=== PATIENT | female | born 1980 | race Caucasian/White ===

== ENCOUNTER 2016-09-06 10:14 | Emergency (ER) | payer OTHER ==
[~2016-09-06] VITALS: Ht 172.7 cm; Wt 89.0 kg
[2016-09-06 12:56] VITALS: BP 103/55
== END 2016-09-06 12:58 | disposition home or self-care (01) ==
LOC: ED 11:00
DX: N92.0 Excessive and frequent menstruation with regular cycle (principal); N93.8 Other specified abnormal uterine and vaginal bleeding; N30.00 Acute cystitis without hematuria; F17.210 Nicotine dependence, cigarettes, uncomplicated; Z88.1 Allergy status to other antibiotic agents
CPT/HCPCS: 36415; 76830; 81001; 84703; 87086; 99285

== ENCOUNTER 2016-11-14 23:49 | Emergency (ER) | payer OTHER ==
[~2016-11-14] VITALS: Ht 170.2 cm; Wt 89.7 kg
[2016-11-15 01:08] LABS: BLOOD UREA NITROGEN 12 mg/dL (7-18)
[2016-11-15 02:36] VITALS: BP 131/87
== END 2016-11-15 02:38 | disposition home or self-care (01) ==
LOC: ED 23:59
DX: N93.8 Other specified abnormal uterine and vaginal bleeding (principal); J98.01 Acute bronchospasm
CPT/HCPCS: 36415; 76830; 80048; 82040; 84703; 85025; 99285

== ENCOUNTER → 2018-03-29 | Emergency (ER) | payer SELFPAY ==
[~2018-03-29] VITALS: Ht 170.2 cm; Wt 83.9 kg
[2018-03-29 16:49] LABS: BASOPHILS # (AUTO) 0.09 x10^3/uL (0-0.1); BASOPHILS % (AUTO) 1 % (0-1); EOSINOPHILS # (AUTO) 0.14 x10^3/uL (0-0.4); EOSINOPHILS % (AUTO) 2 % (1-7); LYMPHOCYTES % (AUTO) 30 % (22-44); MD NO; MEAN CORPUSCULAR HEMOGLOBIN 30.5 pg (27.0-34.8); MEAN CORPUSCULAR HGB CONC 33.3 g/dL (32.4-35.8); MEAN CORPUSCULAR VOLUME 91.5 fL (80-100); MEAN PLATELET VOLUME 9.7 fL (7.4-10.4); MONOCYTES # (AUTO) 0.45 x10^3/uL (0.2-0.8); MONOCYTES % (AUTO) 5 % (2-9); NEUTROPHILS # (AUTO) 5.32 x10^3/uL (1.8-6.8); NEUTROPHILS % (AUTO) 62 % (42-75); PLATELET COUNT 219 x10^3/uL (130-400); RED BLOOD COUNT 4.58 x10^6/uL (3.82-5.3); RED CELL DISTRIBUTION WIDTH 13.9 % (9.6-15.2)
[2018-03-29 17:02] LABS: ALBUMIN 4.1 g/dL (3.4-5.0); ANION GAP 8 mmol/L (5-15); CALCIUM 9.4 mg/dL (8.5-10.1); CHLORIDE 110 mmol/L (98-107)
[2018-03-29 18:03] LABS: MICROSCOPIC NOT IND
[2018-03-29 18:05] LABS: CULTURE INDICATED? NO
[2018-03-29 18:22] VITALS: BP 111/68
== END ==
LOC: ED 18:49
DX: N92.4 Excessive bleeding in the premenopausal period (principal); N93.8 Other specified abnormal uterine and vaginal bleeding; F41.1 Generalized anxiety disorder; M54.30 Sciatica, unspecified side; Z98.51 Tubal ligation status; Z87.891 Personal history of nicotine dependence
CPT/HCPCS: 36415; 76830; 80048; 81003; 82040; 84703; 85025; 99284

== ENCOUNTER 2018-06-17 14:52 | Emergency (ER) | payer OTHER ==
[~2018-06-17] VITALS: Ht 170.2 cm; Wt 89.0 kg
--- NOTE | 2018-06-17 15:07 | NUR ---
UPON LEAVING TRIAGE PT STATES "I HAVE HAD A LITTLE BIT OF ALCOHOL TODAY. I HAVE BEEN DRINKING FOR 2 WEEKS, I HAVE BEEN IN THAT MUCH PAIN"
[2018-06-17] MEDS ORDERED: MORPHINE SULFATE 4 MG/ML, 1ML IVPush PRN (15:30)
[2018-06-17] MEDS ORDERED: ONDANSETRON 2MG/ML, 2ML IVPush ONE (15:30)
[2018-06-17] MEDS ORDERED: SODIUM CHLORIDE FLUSH 10ML SYR IVF ONE (15:30)
[2018-06-17 15:32] LABS: BASOPHILS # (AUTO) 0.03 x10^3/uL (0-0.1); BASOPHILS % (AUTO) 0 % (0-1); EOSINOPHILS # (AUTO) 0.19 x10^3/uL (0-0.4); EOSINOPHILS % (AUTO) 3 % (1-7); LYMPHOCYTES # (AUTO) 3.27 x10^3/uL (1-3.4); LYMPHOCYTES % (AUTO) 43 % (22-44); MD NO; MEAN CORPUSCULAR HEMOGLOBIN 30.5 pg (27.0-34.8); MEAN CORPUSCULAR HGB CONC 33.7 g/dL (32.4-35.8); MEAN CORPUSCULAR VOLUME 90.5 fL (80-100); MEAN PLATELET VOLUME 9.1 fL (7.4-10.4); MONOCYTES # (AUTO) 0.57 x10^3/uL (0.2-0.8); MONOCYTES % (AUTO) 8 % (2-9); NEUTROPHILS # (AUTO) 3.53 x10^3/uL (1.8-6.8); NEUTROPHILS % (AUTO) 47 % (42-75); PLATELET COUNT 244 x10^3/uL (130-400); RED BLOOD COUNT 4.35 x10^6/uL (3.82-5.3); RED CELL DISTRIBUTION WIDTH 14.4 % (9.6-15.2)
[2018-06-17 15:44] LABS: ALANINE AMINOTRANSFERASE 20 U/L (12-78); ALBUMIN 3.9 g/dL (3.4-5.0); ANION GAP 5 mmol/L (5-15); CALCIUM 8.3 mg/dL (8.5-10.1); CHLORIDE 113 mmol/L (98-107); CREATININE 0.71 mg/dL (0.55-1.02)
[2018-06-17 15:49] LABS: ALKALINE PHOSPHATASE 61 U/L (45-117); BILIRUBIN,TOTAL 0.2 mg/dL (0.2-1.0); TOTAL PROTEIN 8.3 g/dL (6.4-8.2)
--- NOTE | 2018-06-17 16:02 | NUR ---
pt presented to ed with vaginal bleeding x 2 months. pt states she has pelvic pain. pt states, I have been drinking today and drove my car here. pt a&ox4. pt with etoh odor. pt placed on bp and cont. pulse oximeter. assessment completed.
[2018-06-17 16:29] LABS: MICROSCOPIC NOT IND
[2018-06-17 16:36] LABS: CULTURE INDICATED? NO
[2018-06-17] MEDS ORDERED: KETOROLAC 30 MG/1 ML ONE (16:53)
[2018-06-17] MEDS ORDERED: KETOROLAC 30 MG/1 ML IM ONE (17:00)
--- NOTE | 2018-06-17 17:00 | NUR ---
pt stated she wanted a breathalyzer prior to driving home. pt breathalyzed at .093
[2018-06-17 18:03] VITALS: BP 137/75
== END 2018-06-17 18:05 | disposition home or self-care (01) ==
LOC: ED 16:18
DX: G89.29 Other chronic pain (principal); R10.31 Right lower quadrant pain
CPT/HCPCS: 36415; 76830; 80053; 81003; 83690; 84703; 85025; 96372; 99284; J1885

== ENCOUNTER 2018-07-15 03:20 | Emergency (ER) | payer OTHER ==
[~2018-07-15] VITALS: Ht 170.2 cm; Wt 78.2 kg
--- NOTE | 2018-07-15 03:36 | NUR ---
BIB [facility] FOR C/O RIGHT ELBOW PAIN AFTER GLF. +ETOH. AWAITING X-RAY. REPORT TO GAYE CASTILLO TO ASSUME PT. CARE.
[2018-07-15] MEDS ORDERED: MIDAZOLAM 1 MG/ML, 2ML IVPush ONE (04:00)
[2018-07-15] MEDS ORDERED: FENTANYL PF 100 MCG/2ML IVPush ONE ×2 (04:00→04:30)
[2018-07-15] MEDS ORDERED: FENTANYL PF 100 MCG/2ML ONE (04:04)
[2018-07-15] MEDS ORDERED: MIDAZOLAM 1 MG/ML, 2ML ONE (04:04)
--- NOTE | 2018-07-15 04:24 | NUR ---
PT WITH RIGHT ELBOW REDUCED AND PT AWAITING X-RAY AND DC
[2018-07-15] MEDS ORDERED: HYDROcodone/APAP 5/325 TABLET PO ONE (04:30)
[2018-07-15 04:52] VITALS: BP 127/72
== END 2018-07-15 05:35 | disposition home or self-care (01) ==
LOC: ED 05:25
DX: S53.124A Posterior dislocation of right ulnohumeral joint, initial encounter (principal); W01.0XXA Fall on same level from slipping, tripping and stumbling without subsequent striking against object, initial encounter; Y93.89 Activity, other specified; Y92.89 Other specified places as the place of occurrence of the external cause; Y99.8 Other external cause status; Z87.891 Personal history of nicotine dependence
CPT/HCPCS: 24600; 73070; 73080; 99285; J2250; J3010

== ENCOUNTER 2018-09-20 20:52 | Emergency (ER) | payer SELFPAY ==
[~2018-09-20] VITALS: Ht 167.6 cm; Wt 82.3 kg
--- NOTE | 2018-09-20 21:11 | NUR ---
pt states seen 6 months ago for a possible "fibroid or a cyst" w/ associated vb. Seen for pap smear last week and "i just started bleeding really bad and they had to stop." C/o pain from L hip to crotch and intermittent vb. monitors applied, siderails up x2, call light within reach, erp at bedside for eval
--- NOTE | 2018-09-20 21:51 | NUR ---
pt up to rr with steady gait, provided pt with urine cup
--- NOTE | 2018-09-20 21:57 | NUR ---
URINE SAMPLE SENT TO LAB
[2018-09-20 21:59] LABS: BASOPHILS # (AUTO) 0.03 x10^3/uL (0-0.1); BASOPHILS % (AUTO) 0 % (0-1); EOSINOPHILS # (AUTO) 0.25 x10^3/uL (0-0.4); EOSINOPHILS % (AUTO) 2 % (1-7); LYMPHOCYTES % (AUTO) 28 % (22-44); MD NO; MEAN CORPUSCULAR HEMOGLOBIN 29.6 pg (27.0-34.8); MEAN CORPUSCULAR HGB CONC 32.7 g/dL (32.4-35.8); MEAN CORPUSCULAR VOLUME 90.6 fL (80-100); MEAN PLATELET VOLUME 9.7 fL (7.4-10.4); MONOCYTES # (AUTO) 0.62 x10^3/uL (0.2-0.8); MONOCYTES % (AUTO) 6 % (2-9); NEUTROPHILS # (AUTO) 6.73 x10^3/uL (1.8-6.8); NEUTROPHILS % (AUTO) 64 % (42-75); PLATELET COUNT 228 x10^3/uL (130-400); RED BLOOD COUNT 4.14 x10^6/uL (3.82-5.3); RED CELL DISTRIBUTION WIDTH 14.9 % (9.6-15.2)
[2018-09-20 22:07] LABS: HCG UR SG 1.009 (1.003-1.030); MICROSCOPIC NOT IND
[2018-09-20 22:09] LABS: ALANINE AMINOTRANSFERASE 23 U/L (12-78); ALBUMIN 3.6 g/dL (3.4-5.0); ANION GAP 8 mmol/L (5-15); CALCIUM 9.1 mg/dL (8.5-10.1); CHLORIDE 107 mmol/L (98-107); CREATININE 0.79 mg/dL (0.55-1.02)
[2018-09-20 22:09] LABS: CULTURE INDICATED? NO
[2018-09-20 22:10] VITALS: BP_DIAS 57
[2018-09-20 22:11] LABS: ALKALINE PHOSPHATASE 56 U/L (45-117); BILIRUBIN,TOTAL 0.1 mg/dL (0.2-1.0); TOTAL PROTEIN 7.4 g/dL (6.4-8.2)
--- NOTE | 2018-09-20 22:11 | NUR ---
pt resting on gurney, monitors in place, call light within reach, awaiting lab and urine results
[2018-09-20 22:18] VITALS: BP_SYST 114
== END 2018-09-20 22:57 | disposition home or self-care (01) ==
LOC: ED 21:23
DX: G89.29 Other chronic pain (principal); N93.8 Other specified abnormal uterine and vaginal bleeding; R10.2 Pelvic and perineal pain; R10.31 Right lower quadrant pain; R10.32 Left lower quadrant pain; R10.33 Periumbilical pain; F41.1 Generalized anxiety disorder; F17.200 Nicotine dependence, unspecified, uncomplicated
CPT/HCPCS: 36415; 74021; 80053; 81003; 81025; 83690; 85025; 99284